=== PATIENT | female | born 1945 | race Hispanic/Latino ===

== ENCOUNTER 2017-10-04 10:09 | Day surgery (SDC) | payer OTHER ==
[~2017-10-04] VITALS: Ht 160 cm; Wt 94.0 kg
[~2017-10-04 10:09] MED LIST: AFRSP NASAL; ALBU8.5H8 IH; AMLO5TAB2 PO; ATOR10TA69 PO; CHOL200074 PO; ERGO500014 PO; FLUT16H NASAL; FLUT1BLS IH; GLIM4TAB3 PO; INSLAN SQ; KETO1DRO OP; LANS30CA55 PO; SODIUM CHLORIDE 0.9% 1000ML 1,000 ML IV ONE; VALS160T29 PO
[2017-10-04 10:47] VITALS: BP 166/66
[2017-10-04 11:26] VITALS: BP 110/46
== END 2017-10-04 12:05 | disposition home or self-care (01) ==
LOC: DAH 10:09 → ENDO 10:09
PROVIDERS: ATTEND Internal Medicine Gastroenterology
DX: K21.9 Gastro-esophageal reflux disease without esophagitis (principal); I10 Essential (primary) hypertension; E78.5 Hyperlipidemia, unspecified; J45.909 Unspecified asthma, uncomplicated; E11.9 Type 2 diabetes mellitus without complications; Z79.899 Other long term (current) drug therapy; Z98.890 Other specified postprocedural states; Z79.4 Long term (current) use of insulin
CPT/HCPCS: 43235; 82948; 93005; A4606; J7030

== ENCOUNTER 2023-10-03 03:39 | Emergency (ER) | payer MEDICARE, OTHER ==
[~2023-10-03 03:39] MED LIST changes: +AMLO-257 PO; -AMLO5TAB2 PO; -GLIM4TAB3 PO; +GLIM4TAB36 PO; -KETO1DRO OP; +KETO1DRO3 OP; -LANS30CA55 PO; -SODIUM CHLORIDE 0.9% 1000ML 1,000 ML IV ONE
[2023-10-03 05:07] LABS: BASOPHILS # (AUTO) 0.01 K/uL (0.00-0.20); BASOPHILS % (AUTO) 0.2 % (0.0-5.0); EOSINOPHILS # (AUTO) 0.05 K/uL (0.00-0.70); EOSINOPHILS % (AUTO) 1.1 % (0.0-8.0); HEMATOCRIT 40.8 % (36-48); IMMATURE GRANULOCYTE ABSOLUTE 0.02 K/uL (0-1); LYMPHOCYTES # (AUTO) 0.6 K/uL (1.0-4.8); LYMPHOCYTES % (AUTO) 12.7 % (21.0-51.0); MEAN CORPUSCULAR HEMOGLOBIN 29.7 pg (27.0-33.0); MEAN CORPUSCULAR HGB CONC 33.1 g/dL (32.0-36.0); MEAN CORPUSCULAR VOLUME 89.7 fL (79-99); MONOCYTES # (AUTO) 0.4 K/uL (0.1-1.0); MONOCYTES % (AUTO) 8.2 % (3.0-13.0); NEUTROPHILS # (AUTO) 3.7 K/uL (1.8-7.7); NEUTROPHILS % (AUTO) 77.4 % (40.0-77.0); PLATELET COUNT (AUTO) 254 K/uL (130-400); RED BLOOD CELL COUNT(AUTO) 4.55 MIL/uL (4.00-5.50); RED CELL DISTRIBUTION WIDTH 14.2 % (11.0-15.5); WHITE BLOOD COUNT (AUTO) 4.7 K/uL (4.8-10.8)
[2023-10-03 05:15] LABS: INFLUENZA TYPE A Negative For Type A (NEGATIVE); INFLUENZA TYPE B Negative For Type B (NEGATIVE)
[2023-10-03 05:19] LABS: CREATININE 0.6 mg/dL (0.5-1.0); POTASSIUM 3.7 mmol/L (3.5-5.1)
[2023-10-03 05:20] LABS: ALBUMIN 3.5 g/dL (3.5-5.0); BILIRUBIN,TOTAL 0.6 mg/dL (0.2-1.0); TOTAL PROTEIN, SERUM 6.9 g/dL (6.0-8.3)
[2023-10-03 05:34] LABS: SARS-CoV-2, RNA, NAAT NEGATIVE SARS CoV-2 (NEGATIVE)
[2023-10-03 05:37] LABS: APPEARANCE,URINE CLEAR (CLEAR); BILIRUBIN,URINE NEGATIVE (NEGATIVE); COLOR,URINE COLORLESS (YELLOW); GLUCOSE, URINE (UA) NEGATIVE (NEGATIVE); KETONES,URINE NEGATIVE (NEGATIVE); LEUKOCYTE ESTERASE ,URINE NEGATIVE Leu/uL (NEGATIVE); NITRATE,URINE NEGATIVE (NEGATIVE); OCCULT BLOOD,URINE NEGATIVE (NEGATIVE); PH,URINE 5.5 (5.0-8.0); PROTEIN,URINE NEGATIVE (NEGATIVE); UROBILINOGEN,URINE 0.2 mg/dL (0.2-1.0)
[2023-10-03 05:38] LABS: ADD UA MICROSCOPIC NO
[2023-10-03] MEDS ORDERED: FAMO20TA8 PO (06:06)
[2023-10-03] MEDS: FAMOTIDINE 20MG VIAL IV ONE (06:11)
[2023-10-03 06:38] VITALS: BP 132/79; PULSE 67; RESP 19; O2SAT 95
== END 2023-10-03 06:44 | disposition home or self-care (01) ==
LOC: EDH 03:39
DX: R12 Heartburn (principal); E11.9 Type 2 diabetes mellitus without complications; E78.00 Pure hypercholesterolemia, unspecified; I10 Essential (primary) hypertension; J45.909 Unspecified asthma, uncomplicated; M19.90 Unspecified osteoarthritis, unspecified site; Z79.51 Long term (current) use of inhaled steroids; Z79.899 Other long term (current) drug therapy; Z88.0 Allergy status to penicillin; Z88.2 Allergy status to sulfonamides; Z20.822 Contact with and (suspected) exposure to COVID-19
CPT/HCPCS: 99285; 96374; 71045; 87635; 84484; 80053; 85025; 87804 ×2; 81003; 36415; 93005; J3490